=== PATIENT | female | born 1990 | race Caucasian/White ===

== ENCOUNTER → 2016-06-25 | Outpatient (CLI) | payer OTHER ==
[2016-06-25 17:40] LABS: CHOLESTEROL/HDL RATIO 2.5
== END | disposition home or self-care (01) ==
LOC: C.LABBFT 14:55
PROVIDERS: ATTEND Internal Medicine
DX: Z13.6 Encounter for screening for cardiovascular disorders (principal)

== ENCOUNTER → 2016-07-12 | Outpatient (CLI) | payer OTHER | LOC: C.PAPS 08:43 | PROVIDERS: ATTEND Physician Assistant | DX: Z12.4 Encounter for screening for malignant neoplasm of cervix (principal) ==

== ENCOUNTER 2019-08-30 20:44 | Inpatient (IN) ==
[2019-08-30] MEDS ORDERED: OXYTOCIN 30 UNITS/500 ML BAG IV PRN (23:06)
[2019-08-30 23:28] LABS: Hematocrit (blood only) 39.7 % (37-47); Hemoglobin 13.9 g/dL (12.0-16.0); Mean Corpuscular Hemoglobin 30.7 pg (25-34); Mean Corpuscular Volume 87.6 fL (80-100); Platelet Count 161 K/uL (130-400); RDW Coefficient of Variation 12.9 % (11.5-14.5); RDW Standard Deviation 41.4 fL (36.4-46.3); Red Blood Count 4.53 M/uL (4.2-5.4); White Blood Count 12.73 K/uL (4.8-10.8)
[2019-08-31] MEDS: LACTATED RINGER'S 1,000 ML IV PRN ×3 (00:15→09:45)
[2019-08-31] MEDS ORDERED: BUPIVACAINE 0.25% 30 ML VIAL ONE (00:47)
[2019-08-31] MEDS ORDERED: ePHEDrine sulfate 50 MG/ML AMP ONE (00:47)
[2019-08-31] MEDS ORDERED: fentaNYL citrate 100 MCG/2 ML VIAL ONE (00:47)
[2019-08-31] MEDS ORDERED: fentaNYL 2MCG/ML ROPIV 1.25MG/ML 100 ML BAG EPI ONE (00:48)
[2019-08-31] MEDS ORDERED: ONDANSETRON INJ 2 MG/ML 2 ML VIAL IV PRN (02:02)
[2019-08-31] MEDS ORDERED: NALOXONE HCL 1 MG in SODIUM CHLORIDE 0.9% 1000ML 1,000 ML IV PRN (02:02)
[2019-08-31] MEDS ORDERED: NALOXONE HCL 0.4 MG/1 ML VIAL/CARP IV PRN (02:02)
[2019-08-31] MEDS ORDERED: DiphenhydrAMINE HCL 50 MG/ML VIAL IV PRN (02:02)
[2019-08-31] MEDS ORDERED: ePHEDrine sulfate 50 MG/ML AMP IV PRN (02:02)
[2019-08-31] MEDS ORDERED: fentaNYL 2MCG/ML ROPIV 1.25MG/ML 100 ML BAG EPI PRN (02:02)
--- NOTE | 2019-08-31 02:04 | Anesthesiology Consultation ---
Date of Service August 31, 2019 Assessment & Plan Chart Review Chart Review: Acceptable Risk for Labor Epidural Consults Requested none History Height/Weight Height: 5 ft 2 in Weight: 68.492 kg Allergies Allergy/AdvReac Type Severity Reaction Status Date / Time No Known Allergies Allergy Verified 08/27/19 15:51 Medications Home Medications Medication Instructions Recorded Confirmed Last Taken pedi multivit no.7-folic acid 1 mcg PO DAILY 08/30/19 08/30/19 08/29/19 08:00 [Flintstones Tab Chew] Active Medications Generic Name Dose Route Start Last Admin Trade Name Freq PRN Reason Stop Dose Admin Lactated Ringer's 1,000 mls @ 125 mls/hr 08/30/19 23:06 08/31/19 00:55 Lr IV 09/01/19 23:05 125 mls/hr .Q8H PRN Infusion L&D Protocol Protocol Past Medical History Medical History Bulimia Encounter for anatomic survey History of depression Pain on intercourse Varicella Past Family History Family History Mother Aortic stenosis Heart disease Grandmother Ovarian cancer Aunt Kidney disease Past Surgical History Surgical History H/O oral surgery Social History Smoking Status: Never smoker Hx Alcohol Use: No Hx Substance Use: No Physical Exam Vital Signs Last Vital Signs Temp 36.9 C 08/31/19 00:10 Pulse 66 08/31/19 01:59 Resp 20 08/31/19 01:50 BP 105/57 L 08/31/19 01:59 Pulse Ox 99 08/31/19 01:58 Testing Laboratory Results 08/30/19 23:17
--- NOTE | 2019-08-31 07:00 | Obstetrical Progress Note ---
Date of Service August 31, 2019 Assessment & Plan (1) state: cont current care Subjective Ambulation: ambulating normally Voiding: no voiding problems Diet Tolerance:: regular diet Lochia:: Small Feeding Type:: breast feeding Current Pain Level(1-10): 1 Physical Exam Constitutional WD/WN, vitals as above (Ext neg) Results & Data ([facility]) Vital Signs (Past 12 Hours) Vital Signs Temp Pulse Resp BP Pulse Ox 08/31/19 06:53 93 H 98 08/31/19 06:48 90 99 08/31/19 06:46 83 118/59 L 08/31/19 06:43 73 97 08/31/19 06:38 75 97 08/31/19 06:33 74 97 08/31/19 06:31 73 109/60 08/31/19 06:30 18 08/31/19 06:28 76 98 08/31/19 06:23 78 98 08/31/19 06:18 87 99 08/31/19 06:16 73 120/60 08/31/19 06:13 73 97 08/31/19 06:08 74 96 08/31/19 06:03 70 97 08/31/19 06:00 74 106/55 L 08/31/19 05:58 77 96 08/31/19 05:53 76 96 08/31/19 05:48 77 98 08/31/19 05:47 75 108/55 L 08/31/19 05:43 72 97 08/31/19 05:38 76 97 08/31/19 05:33 76 97 08/31/19 05:30 71 20 108/58 L 08/31/19 05:28 74 96 08/31/19 05:23 72 96 08/31/19 05:18 77 96 08/31/19 05:15 78 104/58 L 08/31/19 05:13 72 97 08/31/19 05:08 68 97 08/31/19 05:03 82 98 08/31/19 05:01 68 114/58 L 08/31/19 05:00 98.1 F 20 08/31/19 04:58 83 98 08/31/19 04:53 71 99 08/31/19 04:51 105 H 94 08/31/19 04:48 80 97 08/31/19 04:45 71 109/60 07/20 04:43 66 97 08/31/19 04:38 73 98 08/31/19 04:33 68 98 08/31/19 04:30 77 18 103/59 L 08/31/19 04:28 68 98 08/31/19 04:23 68 98 08/31/19 04:18 73 98 08/31/19 04:17 67 112/63 08/31/19 04:13 67 98 08/31/19 04:08 66 99 08/31/19 04:03 76 99 08/31/19 04:01 78 123/68 08/31/19 04:00 20 08/31/19 03:58 67 100 08/31/19 03:53 72 98 08/31/19 03:48 71 100 08/31/19 03:47 64 120/61 08/31/19 03:43 74 100 08/31/19 03:38 66 100 08/31/19 03:33 81 100 08/31/19 03:31 63 109/62 08/31/19 03:30 18 08/31/19 03:28 71 100 08/31/19 03:23 77 99 08/31/19 03:18 70 100 08/31/19 03:15 71 110/64 08/31/19 03:13 59 L 100 08/31/19 03:08 68 98 08/31/19 03:03 75 99 08/31/19 03:01 61 110/63 08/31/19 03:00 18 08/31/19 02:58 67 100 08/31/19 02:53 60 99 08/31/19 02:48 92 H 100 08/31/19 02:47 63 110/61 08/31/19 02:43 67 99 08/31/19 02:38 59 L 99 08/31/19 02:33 94 H 99 08/31/19 02:31 65 113/57 L 08/31/19 02:29 20 08/31/19 02:28 69 97 08/31/19 02:23 91 H 97 08/31/19 02:18 80 98 08/31/19 02:15 77 18 116/66 08/31/19 02:14 97.5 F L 08/31/19 02:13 70 99 08/31/19 02:10 90 20 116/66 07/06/20 02:08 84 98 08/31/19 02:06 86 115/59 L 08/31/19 02:05 18 08/31/19 02:03 73 99 08/31/19 02:00 18 08/31/19 01:59 66 105/57 L 08/31/19 01:58 67 99 08/31/19 01:57 62 108/56 L 08/31/19 01:55 56 L 18 115/55 L 08/31/19 01:54 53 L 125/62 08/31/19 01:53 58 L 99 08/31/19 01:52 87 96/56 L 08/31/19 01:51 77 93/55 L 08/31/19 01:50 20 08/31/19 01:49 82 96/62 L 08/31/19 01:48 67 99 08/31/19 01:47 93 H 90/58 L 08/31/19 01:46 69 93/53 L 08/31/19 01:45 20 08/31/19 01:44 79 95/54 L 08/31/19 01:43 69 98 08/31/19 01:42 66 105/55 L 08/31/19 01:40 20 08/31/19 01:38 64 97 08/31/19 01:33 89 97 08/31/19 00:10 98.4 F 75 20 115/58 L 08/30/19 20:58 72 130/83 08/30/19 20:56 98.1 F 20
--- NOTE | 2019-08-31 07:12 | History & Physical Report ---
Date of Service August 31, 2019 41 weeks gestation first baby presents in labor initially was 1 cm we had the patient ambulate and then she progressed she is now 6 cm received epidural AROM was performed for thin meconium her heart rate is category 1 patient is comfortable Assessment & Plan (1) Supervision of normal intrauterine in primigravida: 41 weeks gestation first baby presents in labor initially was 1 cm we had the patient ambulate and then she progressed she is now 6 cm received epidural AROM was performed for thin meconium her heart rate is category 1 patient is comfortable Admission and Anticipated Discharge Date Admission Date: August 30, 2019 History of Present Illness Primary Care Provider: NO PCP Allergies Allergy/AdvReac Type Severity Reaction Status Date / Time No Known Allergies Allergy Verified 08/27/19 15:51 Home Medications Home Medications Medication Instructions Recorded Confirmed Type pedi multivit no.7-folic acid 1 mcg PO DAILY 08/30/19 08/30/19 History [Flintstones Tab Chew] Patient History Medical History Bulimia Encounter for anatomic survey History of depression Pain on intercourse Varicella Surgical History H/O oral surgery Family History Mother Aortic stenosis Heart disease Grandmother Ovarian cancer Aunt Kidney disease Social History (Updated 12/31/18 @ 13:13 by Ema Martinez) Preferred Language: French Communication Ability: Effective Beliefs That Will Affect Care: None marital status: marital status details: Maximiliano Perrin (29) [phone] Current Living Situation: Parent Current Living Situation Comment: 2 dogs current occupational 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 Other Information That Helps Us Care for You: No Feels Safe at Home: Yes Safety Concerns: Feels Safe At This Time Smoking Status: Never smoker Hx Alcohol Use: No Hx Substance Use: No Childhood Exposure to Second-Hand Smoke: No Physical Exam Constitutional: WD/WN, vitals as above Genitourinary: OB Exam Abdomen: + vertex Manual OB Exam: + cervical dilation 6 cm, + cervical effacement 90% and + station 0 Results & Data ([facility]) Vital Signs (Past 12 Hours) Vital Signs Temp Pulse Resp BP Pulse Ox 08/31/19 07:03 70 97 08/31/19 07:01 81 117/62 08/31/19 06:58 72 98 08/31/19 06:53 93 H 98 08/31/19 06:48 90 99 08/31/19 06:46 83 118/59 L 08/31/19 06:43 73 97 08/31/19 06:38 75 97 08/31/19 06:33 74 97 08/31/19 06:31 73 109/60 08/31/19 06:30 18 08/31/19 06:28 76 98 08/31/19 06:23 78 98 08/31/19 06:18 87 99 08/31/19 06:16 73 120/60 08/31/19 06:13 73 97 08/31/19 06:08 74 96 08/31/19 06:03 70 97 08/31/19 06:00 74 106/55 L 08/31/19 05:58 77 96 08/31/19 05:53 76 96 08/31/19 05:48 77 98 08/31/19 05:47 75 108/55 L 08/31/19 05:43 72 97 08/31/19 05:38 76 97 08/31/19 05:33 76 97 08/31/19 05:30 71 20 108/58 L 08/31/19 05:28 74 96 08/31/19 05:23 72 96 08/31/19 05:18 77 96 08/31/19 05:15 78 104/58 L 08/31/19 05:13 72 97 08/31/19 05:08 68 97 08/31/19 05:03 82 98 08/31/19 05:01 68 114/58 L 08/31/19 05:00 98.1 F 20 08/31/19 04:58 83 98 08/31/19 04:53 71 99 08/31/19 04:51 105 H 94 08/31/19 04:48 80 97 08/31/19 04:45 71 109/60 08/31/19 04:43 66 97 08/31/19 04:38 73 98 08/31/19 04:33 68 98 08/31/19 04:30 77 18 103/59 L 08/31/19 04:28 68 98 08/31/19 04:23 68 98 08/31/19 04:18 73 98 08/31/19 04:17 67 112/63 08/31/19 04:13 67 98 08/31/19 04:08 66 99 08/31/19 04:03 76 99 08/31/19 04:01 78 123/68 08/31/19 04:00 20 08/31/19 03:58 67 100 08/31/19 03:53 72 98 08/31/19 03:48 71 100 08/31/19 03:47 64 120/61 08/31/19 03:43 74 100 08/31/19 03:38 66 100 08/31/19 03:33 81 100 08/31/19 03:31 63 109/62 08/31/19 03:30 18 08/31/19 03:28 71 100 08/31/19 03:23 77 99 08/31/19 03:18 70 100 08/31/19 03:15 71 110/64 08/31/19 03:13 59 L 100 08/31/19 03:08 68 98 08/31/19 03:03 75 99 08/31/19 03:01 61 110/63 08/31/19 03:00 18 08/31/19 02:58 67 100 08/31/19 02:53 60 99 08/31/19 02:48 92 H 100 08/31/19 02:47 63 110/61 08/31/19 02:43 67 99 08/31/19 02:38 59 L 99 08/31/19 02:33 94 H 99 08/31/19 02:31 65 113/57 L 08/31/19 02:29 20 08/31/19 02:28 69 97 08/31/19 02:23 91 H 97 08/31/19 02:18 80 98 08/31/19 02:15 77 18 116/66 08/31/19 02:14 97.5 F L 08/31/19 02:13 70 99 08/31/19 02:10 90 20 116/66 08/31/19 02:08 84 98 08/31/19 02:06 86 115/59 L 08/31/19 02:05 18 08/31/19 02:03 73 99 08/31/19 02:00 18 08/31/19 01:59 66 105/57 L 08/31/19 01:58 67 99 08/31/19 01:57 62 108/56 L 08/31/19 01:55 56 L 18 115/55 L 08/31/19 01:54 53 L 125/62 08/31/19 01:53 58 L 99 08/31/19 01:52 87 96/56 L 08/31/19 01:51 77 93/55 L 08/31/19 01:50 20 08/31/19 01:49 82 96/62 L 08/31/19 01:48 67 99 08/31/19 01:47 93 H 90/58 L 08/31/19 01:46 69 93/53 L 08/31/19 01:45 20 08/31/19 01:44 79 95/54 L 08/31/19 01:43 69 98 08/31/19 01:42 66 105/55 L 08/31/19 01:40 20 08/31/19 01:38 64 97 08/31/19 01:33 89 97 08/31/19 00:10 98.4 F 75 20 115/58 L 08/30/19 20:58 72 130/83 08/30/19 20:56 98.1 F 20 Coding Level of Care Code None Diagnoses Supervision of normal intrauterine in primigravida Z34.00
[2019-08-31] MEDS ORDERED: Nursing to Pharmacy Communication SCH (10:15)
--- NOTE | 2019-08-31 12:58 | Delivery Summary ---
Vaginal Delivery Summary Date of Service August 31, 2019 Vaginal Delivery Summary Findings: Viable female infant with Apgars of 8 and 9. Baby delivered over a midline second-degree laceration, with a second-degree right periurethral laceration. Placenta delivered spontaneously. Cord blood samples obtained. Lacerations repaired with 4-0 and 2-0 Vicryl. Estimated blood loss 300 cc. Labor note: The patient is a 29-year-old 1 para 0 with an EDC of 20 August at 41+ weeks gestational age who is admitted in active labor. The patient presented to labor and delivery with contractions, was observed with cervical change and was admitted. The patient has had a benign course. Her blood type is B+, antibody negative, rubella immune, hepatitis B negative, normal 1 hour Glucola x2, negative cell free DNA screening, negative third t rimester beta strep culture. The patient was observed on labor and delivery and progressed to 6 cm dilatation. Anesthesia was consulted and an epidural was placed. Patient had artificial rupture of membranes for light meconium. Patient progressed to full dilatation and began her second stage. She pushed for approximately 20 minutes, delivering the viable female infant. Cord was clamped and cut. Cord blood samples were obtained. Placenta was delivered spontaneously. Inspection of the perineum showed a second-degree right periurethral tear as well as a second- degree midline tear. Tears were repaired with 4-0 and 2-0 Vicryl. Estimated blood loss 300 cc. Sponge and needle count was correct. [facility] Vaginal Delivery Charge Vaginal Delivery Codes: 84575 global code for the antepartum, delivery, and post-
[2019-08-31] MEDS ORDERED: SUPERCREAM 0.870% 15 GM JAR EXT PRN (13:30)
[2019-08-31] MEDS ORDERED: HYDROCORTISONE ACETATE 25 MG SUPP PR PRN (13:30)
[2019-08-31] MEDS ORDERED: DIPHTHERIA/TETANUS/PERTUSSIS 0.5 ML SYR/VIAL IM ONE (13:30)
[2019-08-31] MEDS ORDERED: ACETAMINOPHEN 325 MG TAB PO PRN (13:30)
[2019-08-31] MEDS ORDERED: BENZOCAINE 20% AER SPR 82.5 GM CAN EXT PRN (13:30)
[2019-08-31] MEDS ORDERED: OXYTOCIN 30 UNITS/500 ML BAG IV PRN (13:30)
[2019-08-31] MEDS ORDERED: ACETAMINOPHEN W/CODEINE #3 1 TAB PO PRN (13:30)
--- NOTE | 2019-08-31 15:52 | Anesthesia Procedure Note ---
Date of Service August 31, 2019 Anesthesia Post Epidural Note Vital Signs Vital Signs: Temp Pulse Resp BP Pulse Ox 37.1 C 80 20 99/56 L 99 08/31/19 14:45 08/31/19 15:45 08/31/19 14:45 08/31/19 15:45 08/31/19 12:33 Pain Intensity Abdomen: Pain Intensity: 7 Notes Mental Status: alert / awake / arousable Nausea / Vomiting: adequately controlled Pain: adequately controlled Airway Patency, RR, SpO2: stable & adequate BP & HR: stable & adequate Hydration State: stable & adequate Neuraxial Anesthesia: was administered and sensory block is resolving Anesthetic Complications: no major complications apparent Epidural: Removed without complications and With tip intact
[2019-08-31] MEDS: IBUPROFEN 600 MG TAB PO PRN (17:22)
[2019-09-01] MEDS: IBUPROFEN 600 MG TAB PO PRN ×4 (00:24→21:06)
--- NOTE | 2019-09-01 07:18 | Obstetrical Progress Note ---
Date of Service September 01, 2019 Assessment & Plan (1) state: Day 1 s/p . Doing well. Routine care Subjective Ambulation: ambulating normally Voiding: no voiding problems Passing Gas:: Yes Diet Tolerance:: regular diet Lochia:: Moderate Feeding Type:: breast feeding Physical Exam Gastrointestinal (Abdomen) Percussion/Palpation: abdomen soft; abdomen nontender, no guarding and abdomen not rigid Results & Data ([facility]) Vital Signs (Past 12 Hours) Vital Signs Temp Pulse Resp BP Pulse Ox 09/01/19 04:25 36.4 C L 80 18 99/65 L 96 09/01/19 00:00 36.7 C 76 18 106/67 96 08/31/19 19:55 36.8 C 87 16 103/63 98
[2019-09-01] MEDS: PRENATAL VITAMIN 1 TAB PO SCH (09:06)
[2019-09-01] MEDS: DOCUSATE SODIUM 100 MG CAP PO SCH ×2 (09:06→21:06)
[2019-09-01] MEDS ORDERED: bisacodyL 5 MG TABEC PO SCH (20:00)
[2019-09-02 06:15] LABS: Hematocrit (blood only) 34.9 % (37-47); Hemoglobin 11.7 g/dL (12.0-16.0)
--- NOTE | 2019-09-02 06:59 | Obstetrical Progress Note ---
Date of Service September 02, 2019 Assessment & Plan (1) Status post vaginal delivery: Doing well. Routine care. Plan d/c today. Instructions given. Subjective Ambulation: ambulating normally Voiding: no voiding problems Passing Gas:: Yes Diet Tolerance:: regular diet Lochia:: Small Feeding Type:: breast feeding Physical Exam Constitutional WD/WN, vitals as above Cardiovascular Extremities: no calf tenderness and no edema Gastrointestinal (Abdomen) soft, nt, nd ff/nt at u Psychiatric A+Ox3, euthymic affect Results & Data ([facility]) Vital Signs (Past 12 Hours) Vital Signs Temp Pulse Resp BP Pulse Ox 09/01/19 23:45 36.8 C 87 18 108/66 09/01/19 20:10 36.6 C 84 18 112/69 96
[2019-09-02] MEDS: DOCUSATE SODIUM 100 MG CAP PO SCH (08:58)
[2019-09-02] MEDS: PRENATAL VITAMIN 1 TAB PO SCH (10:36)
== END 2019-09-02 14:35 | disposition home or self-care (01) | DRG 807 ==
LOC: OPB 20:44 → 4S1 20:46 → 4S2 08-31 17:00

== ENCOUNTER 2022-01-06 10:07 | Inpatient (IN) ==
[2022-01-06] MEDS ORDERED: LACTATED RINGER'S 1,000 ML IV PRN (10:12)
[2022-01-06] MEDS ORDERED: LIDOCAINE 1% LOCAL 20 ML VIAL INFIL PRN (10:12)
[2022-01-06] MEDS ORDERED: OXYTOCIN 30 UNITS/500 ML BAG IV PRN ×2 (10:12→13:45)
--- NOTE | 2022-01-06 10:14 | History & Physical Report ---
Date of Service January 06, 2022 Assessment & Plan (1) Postmaturity , 40-42 weeks gestation: (2) Normal labor: Plan admit. fetus category one. expectant management. desires epidural. anticipate . History of Present Illness Chief Complaint: contractions Primary Care Provider: Garry Toscano DO Patient is a 31yowf with iup at 40 5/7 weeks who presents complaining of contractions. Started last night and now q 2-3 min and uncomfortable. no lof/vb. Good fm. the has been uncomplicated. and Delivery Plans s/p flu shot IOL Post-dates 01/10 OB Labs: Blood Type B Positive 01/09/19 Antibody Screen NEGATIVE 01/09/19 Hemoglobin 11.3 g/dl (12.0-16.0) L 10/12/21 Hematocrit 34.2 % (34.1-44.9) 10/12/21 Mean Corpuscular Volume 87.4 fL (80.0-100.0) 05/24/21 Platelet Count 239 Thousand/uL (140-400) 05/24/21 Rubella IgG Antibody 9.32 Index 05/24/21 Rapid Plasma Reagin Nonreactive (Nonreactive) 01/09/19 Hepatitis B Surface Antigen Neg (Neg) 01/09/19 Hepatitis B Surface Antigen. NON-REACTIVE (NON-REACTIVE) 05/24/21 Hepatitis C Antibody (EIA) NON-REACTIVE (NON-REACTIVE) 05/24/21 HIV (1&2) Ab and P24 Ag, 4th Gener NON-REACTIVE (NON-REACTIVE) 05/24/21 Glucose 1 Hour 50 gm Load 143 mg/dl (70-130) H 10/12/21 OB Optional Labs: Chlamydia trachomatis RNA NOT DETECTED (NOT DETECTED) 05/24/21 Neisseria gonorrhoeae RNA NOT DETECTED (NOT DETECTED) 05/24/21 Thyroid Stimulating Hormone (TSH) 1.080 uIu/ml (0.300-4.500) 07/20/20 Labs Reviewed: Declines cf/sma--mln Declines cfdna--mln Declines msafp/quad--mln gbs negative Allergies Allergy/AdvReac Type Severity Reaction Status Date / Time No Known Allergies Allergy Verified 01/04/22 15:24 Home Medications Medication Instructions Recorded Confirmed Type pedi multivit no.7-folic acid PO 01/17/21 01/04/22 History [Flintstones Tab Chew] Patient History Medical History Bulimia Candidiasis of breast Encounter for contraceptive management Encounter for anatomic survey Encounter for visit Encounter for routine gynecological examination History of depression Oral contraceptive prescribed Pain on intercourse Postnasal drip state Varicella Surgical History H/O oral surgery Status post vaginal delivery Family History Mother Aortic stenosis Heart disease Osteoporosis Grandmother Ovarian cancer Aunt Kidney disease Denies family history of Prostate cancer Breast cancer Colorectal cancer Social History Smoking Status: Never smoker Hx Alcohol Use: No Hx Substance Use: No Preferred Language: Bulgarian Communication Ability: Effective Visual Impairment: No Limitations Hearing Ability: Normal Beliefs That Will Affect Care: None marital status: marital status details: Maximiliano Perrin (32) [phone] Current Living Situation: Spouse and Family Current Living Situation Comment: Lives with spouse, child and 2 dogs current occupational status: 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 Date GA wks Lbr Lgth wt Sex Type del Anes Place Del Prov ? Comment 08/31/19 41 7lbs 14.4 oz F Spinal [facility] Dr [place] No 01/27/21 Aborted-Spontaneous [facility] History noncontributory Physical Exam Constitutional: WD/WN, vitals as above Gastrointestinal (Abdomen): soft, gravid, nt Psychiatric: A+Ox3, euthymic affect Genitourinary: cx--4/100/-2 toco--q3-4min efm--125 with mod variability, accels to 150s, no decels Coding Level of Care Code None Diagnoses Postmaturity , 40-42 weeks gestation O48.0 Normal labor O80; Z37.9
[2022-01-06] MEDS ORDERED: SODIUM CHLORIDE 0.9% INJ 10 ML VIAL ONE (10:32)
[2022-01-06] MEDS ORDERED: LIDOCAINE 2%/EPINEPHRINE 1:200,000 20 ML SDV ONE (10:32)
[2022-01-06] MEDS ORDERED: ePHEDrine sulfate 50 MG/ML AMP ONE (10:32)
[2022-01-06] MEDS ORDERED: BUPIVACAINE 0.25% 30 ML VIAL ONE (10:32)
[2022-01-06] MEDS ORDERED: fentaNYL citrate 100 MCG/2 ML VIAL ONE (10:32)
[2022-01-06] MEDS ORDERED: fentaNYL 2MCG/ML ROPIVACAINE 1.25MG/ML 100 ML BAG EPI ONE (10:32)
[2022-01-06 10:40] LABS: Hematocrit (blood only) 36.9 % (34.1-44.9); Hemoglobin 13.1 g/dl (12.0-16.0); Mean Corpuscular Hemoglobin 30.5 pg (25.0-34.0); Mean Corpuscular Hgb Conc 35.5 g/dL (32.0-36.0); Mean Platelet Volume 10.7 fL (9.4-12.3); Platelet Count 159 K/uL (130-400); RDW Coefficient of Variation 13.1 % (11.5-14.5); RDW Standard Deviation 40.6 fL (36.4-46.3); Red Blood Count 4.29 M/uL (3.93-5.22); White Blood Count 10.36 K/ul (4.8-10.8)
--- NOTE | 2022-01-06 10:42 | Anesthesiology Consultation ---
Date of Service January 06, 2022 Assessment & Plan (1) Encounter for pre-operative examination: Chart Review Chart Review: Acceptable Risk for Labor Epidural Consults Requested none ASA ASA2 Proposed Anesthesia Anesthesia Type: Labor Epidural Risk / Benefits Reviewed With: PT / POA / Parent / Guardian, Accepts Plan and Informed Consent Obtained History Allergies Allergy/AdvReac Type Severity Reaction Status Date / Time No Known Allergies Allergy Verified 01/04/22 15:24 Medications Home Medications Medication Instructions Recorded Confirmed Last Taken pedi multivit no.7-folic acid PO 01/17/21 01/04/22 Unknown [Flintstones Tab Chew] Past Medical History Medical History Bulimia Candidiasis of breast Encounter for contraceptive management Encounter for anatomic survey Encounter for visit Encounter for routine gynecological examination History of depression Oral contraceptive prescribed Pain on intercourse Postnasal drip state Varicella Exercise / Class Metabolic Activity II 4-5 Yardwork/Stairs/Walk up hill Past Family History Family History Mother Aortic stenosis Heart disease Osteoporosis Grandmother Ovarian cancer Aunt Kidney disease Denies family history of Prostate cancer Breast cancer Colorectal cancer Past Surgical History Surgical History H/O oral surgery Status post vaginal delivery Past Anesthesia History No Hx of Anesthesia Complications and No Family Hx of Anesthesia Complications History of PONV No Hx of PONV and No Hx of Motion Sickness Social History Smoking Status: Never smoker Hx Alcohol Use: No Hx Substance Use: No Physical Exam Vital Signs Last Vital Signs Pulse 94 H 01/06/22 10:14 BP 107/70 01/06/22 10:14 ENMT Mouth: no dentition abnormality Thyromental Distance: > or= 3.5 Finger Breadths Mallampati Class: II Neck normal visual inspection Respiratory normal respiratory effort Auscultation: lungs clear to auscultation bilaterally Cardiovascular Rate/Rhythm: regular rate and regular rhythm Testing Laboratory Results 01/06/22 10:28
[2022-01-06] MEDS ORDERED: NALOXONE HCL 0.4 MG/1 ML VIAL/CARP IV PRN (11:02)
[2022-01-06] MEDS ORDERED: NALOXONE HCL 1 MG in SODIUM CHLORIDE 0.9% 1000ML 1,000 ML IV PRN (11:02)
[2022-01-06] MEDS ORDERED: ePHEDrine sulfate 50 MG/ML AMP IV PRN (11:02)
[2022-01-06] MEDS ORDERED: NALBUPHINE HCL INJ 10 MG/ML AMP IV PRN (11:02)
[2022-01-06] MEDS ORDERED: ONDANSETRON INJ 2 MG/ML 2 ML VIAL IV PRN (11:02)
[2022-01-06] MEDS ORDERED: diphenhydrAMINE 50 MG/ML VIAL IV PRN (11:02)
[2022-01-06] MEDS ORDERED: fentaNYL 2MCG/ML ROPIVACAINE 1.25MG/ML 100 ML BAG EPI PRN (11:02)
--- NOTE | 2022-01-06 12:26 | Labor Progress Brief Note ---
Date of Service January 06, 2022 Subjective comfortable Assessment & Plan (1) Normal labor: Plan continue current mangement. fetus overall category one. anticipate . Admission and Anticipated Discharge Date Admission Date: January 06, 2022 Physical Exam Physical Exam: cx--7-8/100/-0 arom with my finger, clear efm--120s with mod variability, small accels, decel with srom but resolved with position change, may have had a long contraction as well. Results & Data ([facility]) Vital Signs (Past 12 Hours) Vital Signs Temp Pulse Resp BP Pulse Ox 01/06/22 12:23 76 105/68 01/06/22 12:20 93 H 92 01/06/22 12:21 94 H 97 01/06/22 12:16 78 98 01/06/22 12:11 69 99 01/06/22 12:08 105 H 92 01/06/22 12:06 75 101/62 98 01/06/22 12:02 87 109/69 92 01/06/22 12:01 85 98 01/06/22 11:56 94 01/06/22 11:56 92 H 01/06/22 11:56 89 101/66 97 01/06/22 11:52 71 99/59 L 01/06/22 11:51 69 96 01/06/22 11:46 93 H 101/66 98 01/06/22 11:41 81 102/65 96 01/06/22 11:39 86 90 01/06/22 11:37 71 102/59 L 01/06/22 11:36 74 97 01/06/22 11:32 71 99/61 L 01/06/22 11:31 73 96 01/06/22 11:27 86 106/57 L 01/06/22 11:26 82 97 01/06/22 11:23 77 111/58 L 01/06/22 11:21 86 96 01/06/22 11:16 76 96 01/06/22 11:11 75 102/67 97 01/06/22 11:06 92 H 96 01/06/22 11:05 88 99/62 L 01/06/22 11:03 100 H 103/61 01/06/22 11:01 90 104/66 97 01/06/22 10:59 90 105/80 01/06/22 10:57 92 H 115/70 01/06/22 10:56 71 97 01/06/22 10:55 72 108/64 01/06/22 10:53 82 108/70 01/06/22 10:51 82 97 01/06/22 10:46 94 H 97 01/06/22 10:14 94 H 107/70 01/06/22 11:19 36.5 C 20 Coding Level of Care Code None Diagnoses Normal labor O80; Z37.9
[2022-01-06] MEDS ORDERED: oxyCODONE/ACETAMINOPHEN 5mg/325mg TAB PO PRN (13:45)
[2022-01-06] MEDS ORDERED: BENZOCAINE 20% AER SPR 82.5 GM CAN EXT PRN (13:45)
[2022-01-06] MEDS ORDERED: DIPHTHERIA/TETANUS/PERTUSSIS 0.5 ML SYR/VIAL IM ONE (13:45)
[2022-01-06] MEDS ORDERED: bisacodyL 10 MG SUPP PR PRN (13:45)
[2022-01-06] MEDS ORDERED: HYDROCORTISONE ACETATE 25 MG SUPP PR PRN (13:45)
[2022-01-06] MEDS ORDERED: ACETAMINOPHEN 325 MG TAB PO PRN (13:45)
--- NOTE | 2022-01-06 13:49 | Delivery Summary ---
Supervising Physician Co-Signing Physician Notes Pre-operative Diagnosis: at 40 5/7 active labor Post-operative Diagnosis: same periclitoral and first degree laceration Procedure: epidural arom periclitoral and first degree lac repair EBL: 400cc Anesthesia: epidural Procedure: The patient presented to labor and delivery in active labor. she received an epidural and then had arom for clear fluid. She progressed to c/c/+2. The patient pushed for 2 contractions to deliver a viable female infan t in renetta position. The nose and mouth were bulb suctioned on the perineum and the rest of the infant was then delivered without difficulty. The baby was vigorous. The nose and mouth were again bulb suctioned and the infant was placed in the maternal abdomen for drying and attention. Cord was clamped and cut at one minute of life. Cord blood and segment obtained. Placenta delivered spontaneous, intact with a three vessel cord. Cervix/sulci/rectum were intact. A first degree perineal laceration and a separation above the urethra to just below the clitoris were repaired in the normal standard fashion. Hemostasis obtained with dilute pitocin and fundal massage. Apgars were 8/9. Mother and baby doing well at the end of the delivery. Vaginal Delivery Summary Date of Service January 06, 2022 Vaginal Delivery Summary and 1st Degree LAC (and periclitoral) [facility] Vaginal Delivery Charge Delivery Type Details: and 1st Degree LAC (and periclitoral)
--- NOTE | 2022-01-06 16:05 | Anesthesia Procedure Note ---
Date of Service January 06, 2022 Anesthesia Post Epidural Note Vital Signs Vital Signs: Temp Pulse Resp BP Pulse Ox 97.7 F 88 20 113/59 L 95 01/06/22 11:19 01/06/22 15:52 01/06/22 11:19 01/06/22 15:52 01/06/22 13:21 Notes Mental Status: alert / awake / arousable and participated in evaluation Nausea / Vomiting: adequately controlled Pain: adequately controlled Airway Patency, RR, SpO2: stable & adequate BP & HR: stable & adequate Hydration State: stable & adequate Neuraxial Anesthesia: was administered and sensory block is resolving Anesthetic Complications: no major complications apparent and Pt Satisfied with anesthetic care Epidural: Removed without complications and With tip intact
[2022-01-06] MEDS: IBUPROFEN 600 MG TAB PO PRN (17:30)
[2022-01-06] MEDS: DOCUSATE SODIUM 100 MG CAP PO SCH (21:36)
[2022-01-07] MEDS: IBUPROFEN 600 MG TAB PO PRN ×3 (04:14→13:11)
[2022-01-07 06:28] LABS: Hematocrit (blood only) 30.7 % (34.1-44.9); Hemoglobin 10.8 g/dl (12.0-16.0)
--- NOTE | 2022-01-07 07:34 | Obstetrical Progress Note ---
Date of Service January 07, 2022 Assessment & Plan (1) Vaginal delivery: Plan Doing well. Meeting criteria. Plan d/c later today. Instructions given. Day #:: 1 Subjective Ambulation: ambulating normally Voiding: no voiding problems Passing Gas:: Yes Diet Tolerance:: regular diet Lochia:: Small Feeding Type:: breast feeding Feels well this am. Physical Exam Constitutional WD/WN, vitals as above Respiratory normal respiratory effort, lungs clear to auscultation Cardiovascular RRR, no murmur, no edema Extremities: no calf tenderness and no edema Gastrointestinal (Abdomen) soft, nt, nd, ff/nt at u Psychiatric A+Ox3, euthymic affect Results & Data ([facility]) Vital Signs (Past 12 Hours) Vital Signs Temp Pulse Resp BP 01/07/22 04:20 36.6 C 94 H 18 100/66 01/06/22 23:40 36.7 C 87 18 93/55 L 01/06/22 19:40 36.8 C 78 18 108/64
[2022-01-07] MEDS ORDERED: PRENATAL VITAMIN 1 TAB PO SCH (08:00)
[2022-01-07] MEDS: DOCUSATE SODIUM 100 MG CAP PO SCH (08:17)
[2022-01-07] MEDS ORDERED: bisacodyL 5 MG TABEC PO SCH (20:00)
== END 2022-01-07 16:45 | disposition home or self-care (01) | DRG 807 ==
LOC: OPB 10:07 → 4S1 10:08 → 4E2 17:39